=== PATIENT | female | born 1955 | race Caucasian/White ===

== ENCOUNTER 2020-09-15 16:24 | Inpatient (IN) | payer OTHER ==
[~2020-09-15] VITALS: Ht 149.9 cm; Wt 77.6 kg
[2020-09-15 16:32] VITALS: BP 152/68
[2020-09-15] MEDS ORDERED: FOSAMAX 70 MG T70 MG PO (16:40)
[2020-09-15] MEDS ORDERED: EUTHYROX100 MCG PO (16:40)
[2020-09-15] MEDS ORDERED: SINGULAIR 10 MG10 MG PO (16:41)
[2020-09-15] MEDS ORDERED: ZOCOR 20 MG TAB20 M1 PO (16:41)
[2020-09-15] MEDS ORDERED: SELENIMIN200 MCG PO (16:41)
[2020-09-15] MEDS ORDERED: VITAMIN D3125 MC1 PO (16:42)
[2020-09-15] MEDS ORDERED: CALCIUM + D3 E1 EACH PO (16:42)
[2020-09-15 17:07] LABS: BE -0.6 mmol/L (-2 to +3); PCO2 32.2 mmHg (35.0-45.0); pH 7.459 (7.340-7.450)
[2020-09-15 17:07] LABS: POTASSIUM 3.5 mmol/L (3.5-5.1)
[2020-09-15 17:10] LABS: APTT 27.3 Seconds (25.0-31.3); PROTIME 10.4 Seconds (9.20-11.50)
[2020-09-15 17:15] LABS: PO2 55.3 mmHg (75.0-100.0)
[2020-09-15 17:17] LABS: ALBUMIN 3.3 g/dL (3.4-5.0); TOTAL BILIRUBIN 0.4 mg/dL (<0.1-1.0); TOTAL PROTEIN 7.9 g/dL (6.4-8.2)
[2020-09-15 17:18] LABS: ABSOLUTE EOSINOPHILS 0.2 thou/uL (0.0-0.7); ABSOLUTE LYMPHOCYTES 1.9 thou/uL (0.8-5.3); ABSOLUTE MONOCYTES 0.4 thou/uL (0.0-1.2); ABSOLUTE NEUTROPHILS 8.5 thou/uL (1.6-8.1); BASOPHILS 0.4 %; EOSINOPHILS 1.5 %; HEMATOCRIT 42.9 % (37.0-47.0); HEMOGLOBIN 14.3 gm/dL (12.0-15.0); LYMPHOCYTES 17.5 %; MCH 28.7 pg (26.0-34.0); MCHC 33.5 g/dL (28.0-37.0); MCV 85.7 fL (80.0-100.0); MONOCYTES 3.4 %; MPV 6.2 fl. (7.2-11.1); NUCLEATED RBCS 0 /100WBC; PLATELET COUNT* 447 thou/uL (150-400); POLYS 77.2 %; RDW-CV 12.9 % (10.5-14.5)
[2020-09-15 21:00] VITALS: BP 113/61
[2020-09-15 22:00] VITALS: BP 106/55
[2020-09-15 23:07] VITALS: BP 117/60; BP 127/71
[2020-09-16] VITALS (15 sets, daily range): BP systolic 98–137; BP diastolic 41–70
[2020-09-16 02:28] LABS: ABSOLUTE LYMPHOCYTES 0.8 thou/uL (0.8-5.3); ABSOLUTE MONOCYTES 0.1 thou/uL (0.0-1.2); ABSOLUTE NEUTROPHILS 8.1 thou/uL (1.6-8.1); BASOPHILS 0.2 %; HEMATOCRIT 37.4 % (37.0-47.0); HEMOGLOBIN 12.5 gm/dL (12.0-15.0); MCH 28.5 pg (26.0-34.0); MCHC 33.5 g/dL (28.0-37.0); MCV 85.2 fL (80.0-100.0); MONOCYTES 1.3 %; MPV 6.1 fl. (7.2-11.1); NUCLEATED RBCS 0 /100WBC; PLATELET COUNT* 420 thou/uL (150-400); POLYS 89.5 %; RBC 4.39 mil/uL (4.20-5.00); RDW-CV 13.1 % (10.5-14.5); WBC 9.1 thou/uL (4.0-11.0)
[2020-09-16 02:29] LABS: CALCIUM 8.6 mg/dL (8.5-10.1); POTASSIUM 4.1 mmol/L (3.5-5.1)
--- NOTE | 2020-09-16 06:44 | NUR ---
PATIENT NOTED TO HAVE INVREASE IN O2 DEMANDS THROUGH THE NIGHT. INCREASE IN O2 FORM 6L TO 14L. DURING AM ROUNDS, O2 LEVEL AT 86-87% ON THAT 14L. PATIENT PLACED ON NRB MSAK AT THIS TIME. RT NOTIFIED. NOTIFIED.
[2020-09-16 07:35] LABS: BE -1.1 mmol/L (-2 to +3); PCO2 32.1 mmHg (35.0-45.0); pH 7.453 (7.340-7.450)
[2020-09-16 07:40] LABS: PO2 50.5 mmHg (75.0-100.0)
--- NOTE | 2020-09-16 07:45 | NUR ---
RECEIVED REPORT FROM ED RN. PT TRANSFERRED TO 233. PT A&OX4. VSS. ADMISSION HISTORY & PHYSICAL ASSESSMENT COMPLETED AND CHARTED. TRANSFUSED 1 UNIT OF CONVALESCENT PLASMA. HIVES NOTED AFTER AN HOUR OF TRANSFUSION. DOXYCYCLINE ALSO GIVEN. DR MOBLEY MADE AWARE WITH ORDER TO DC DOXYCYCLINE. BENADRYL GIVEN. NO NEW LAB ORDERS. PT WITH EPISODES OF DESATURATION 85-87%- INCREASED O2 FROM 6L NC TO NRB 15L IN AM. PROVIDER MADE AWARE WITH NEW ORDERS. CALL LIGHT WITHIN REACH.
--- NOTE | 2020-09-16 09:58 | NUR ---
CM SPOKE TO THE PT OVER THE HOSPITAL ROOM PHONE TO DISCUSS CM ASSESSMENT PT IS CURRENTLY UNDER ENHANCED PRECAUTIONS DUE TO BEING COVID POSITIVE. PT IS A&O, NORMALLY INDEPENDENT WITH ADL'S, ACITVE AND DRIVES. PT USES 0 DME. PT HAS 0 HX OF HH OR SNF. PT CURRENLY ON 15L OXYGEN AND DID NOT USES HOME OXYGEN PRIOR TO ADMIT. CM WILL REMAIN AVAILABLE TO ASSIST AND FOLLOW NEEDED.
--- NOTE | 2020-09-16 12:41 | NUR ---
REPORT CALLED TO UIREL PEARSON IN ICU. PT WILL TRANSFER TO ROOM 1 IN ICU.
--- NOTE | 2020-09-16 12:42 | EKG ---
[place] [address] ELECTROCARDIOGRAM REPORT Name: MASSIEL LOMELI Room: [place] [address] ADM IN .R.#: [id number] Admission: 09/15/20 Attend Phys: Ronnell Carvalho, Discharge: Date of : 55 Date of Service: 09/15/20 1637 Report #: [id number] THIS REPORT FOR: //name// [facility] ED Test Date: 2020-09-15 Test Time: 16:37:29 Pat Name: MASSIEL LOMELI Department: Room: [facility] Gender: F Director Of Nursing: CCD : 1955 Requested By: Han Romero Order Number: [id number] MD: Dylan Harris Measurements Intervals [place] Rate: 86 P: 40 [place]: 161 QRS: 6 QRSD: 93 T: 9 QT: 354 QTc: 424 Interpretive Statements Sinus rhythm No previous ECG available for comparison Electronically Signed On 09-16-2020 12:42:18 ELECTRONICS SPECIALIST by Dylan Harris [email or web address] <ELECTRONICALLY SIGNED> By: Dylan Harris MD, [facility] 09/16/20 1242 1637 163 Dylan Harris MD, [facility] /EPI
[2020-09-16 16:09] LABS: CALCIUM 8.1 mg/dL (8.5-10.1); CREATININE 1.3 mg/dL (0.6-1.3); POTASSIUM 3.5 mmol/L (3.5-5.1)
--- NOTE | 2020-09-16 19:45 | CON ---
[address] [address] CONSULTATION Name: MASSIEL LOMELI Room: [address] IN M.R.#: [id number] Admission: 09/15/20 Attend Phys: Ronnell Carvalho MD Discharge: Date of : 55 Report #: [id number] THIS REPORT FOR: cc: Physician not on staff Physician not on staff ~ Luis Antonio Hodges MD DATE OF SERVICE: 09/16/2020 CONSULT REQUESTED BY: Ronnell Carvalho MD INDICATION FOR CONSULTATION: Acute hypoxemic respiratory failure secondary to COVID-19. HISTORY OF PRESENT ILLNESS: This is a 65-year-old female who only has a remote history of smoking. She says that she discontinued smoking when she was in her 20s and has been a lifetime nonsmoker since then. She has had some respiratory complaints long-term which she describes as chronic bronchitis. The patient does take Singulair at home as below. It is possible that what she is describing as chronic bronchitis is bronchial asthma. Her baseline creatinine is normal. The patient is now admitted with flu-like complaints. She has been having increasing shortness of breath, also has been having fever and chills and body aches. She has also been more anxious and has had a clear nasal discharge as well as congestion in her nose. The patient has had contact with her son-in-law who has COVID-19. The patient at the time of my evaluation was on 15 L nasal cannula as well as maintaining O2 saturation in the low 90s. The patient does reported to have had a significant rash last night. The rash had developed when the patient was receiving both convalescent plasma as well as doxycycline, the causal relationship is not established; however. REVIEW OF SYSTEMS: The patient's review of systems for 12 points is negative except as mentioned above. PAST MEDICAL HISTORY: She has had a chronic respiratory illness. She thinks it is chronic bronchitis. It is possible that this is instead of bronchial asthma or other chronic respiratory disease. Cholecystectomy, back surgery, long-term use of Singulair, hypothyroidism, hyperlipidemia. CURRENT MEDICATIONS: List in [place] reviewed. HOME MEDICATIONS: List in [place] reviewed, also as discussed above. FAMILY HISTORY: Son-in-law [place] COVID-[place] [address] CONSULTATION Name: MASSIEL LOMELI Room: [address]#: [id number] Admission: 09/15/20 Attend Phys: Ronnell Carvalho MD Discharge: Date of : 55 Report #: [id number] SOCIAL HISTORY: She used to smoke when she was young in her teens and 20s discontinued when she was in her mid 20s, has not smoked since then. No known history of heavy alcohol use or illegal drug use. PHYSICAL EXAMINATION: GENERAL: The patient was very anxious at the time of my evaluation and was really worried about the diagnosis of COVID-19. VITAL SIGNS: She had a pulse of 89 and a blood pressure of 127/60, she was breathing around 30, was saturating 93% on 15 liters nasal cannula. Afebrile. HEENT: Head is normocephalic and atraumatic. NECK: Does not show raised JVP, asymmetry, mass or lymph nodes. CHEST: Symmetrical expansion on inspection and palpation. On auscultation, breath sounds are bilaterally equal, but decreased. Respiratory rate was high. Expirations were prolonged. HEART: Regular. There is no murmur. ABDOMEN: Soft and nontender. EXTREMITIES: Lower extremities show minimal edema, no calf tenderness. SKIN: Dry and intact. NEUROLOGICAL: Moves all extremities bilaterally equally and spontaneously with no focal deficit identified. LABORATORY DATA: The patient's chest x-ray is reviewed and it shows interstitial infiltrates bilaterally consistent with COVID-19. The patient's lab work is in [place] and is reviewed. ASSESSMENT AND PLAN: 1. Acute hypoxemic respiratory failure secondary to COVID-19. I considered use of BiPAP; however, I held off for now, as the patient is extremely anxious, would use a green high flow nasal cannula or heated high flow nasal cannula as indicated to maintain O2 saturations in the low 90s. I feel that it is okay to give her low dose Xanax for anxiety. If this is not sufficient, then I will have a low threshold of starting a Precedex infusion as anxiety appears to be playing a significant role in worsening her respiratory failure. 2. COVID-19. She did receive 1 unit of convalescent plasma last night. She is on dexamethasone. I agree with the current dose. Also, she is on remdesivir. We will follow LFTs. It is not clear as to whether the patient had a reaction to convalescent plasma or not. Regardless, if she fails to improve, she potentially could still be given a second unit from a different donor. 3. Pulmonary infiltrates. She received azithromycin yesterday. I ordered more azithromycin. She is on Zosyn as well as ceftriaxone. For now, I discontinued ceftriaxone; however, if she improves then I would switch her back to ceftriaxone and discontinue Zosyn. 4. Evaluation for thromboembolic phenomena. I ordered [place] [address] CONSULTATION Name: MASSIEL LOMELI Room: [address] IN [facility].#: [id number] Admission: 09/15/20 Attend Phys: Ronnell Carvalho MD Discharge: Date of : 55 Report #: [id number] is some rise in creatinine on the lab work this evening; therefore, I would favor holding off on the CTA chest for now, would increase Lovenox to intermediate dose that is b.i.d. 5. Fluid and electrolytes. I considered more Lasix; however, there is mild elevation in creatinine and therefore, I decided to hold off. 6. History of chronic respiratory illness. She describes this has been chronic bronchitis. She is on Singulair, long-term. 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 I do not have a previous chest x-ray available for comparison. It would be possible that the patient instead has underlying bronchial asthma or an interstitial lung disease. The patient is critically ill at this time. Total time spent providing critical care to this patient today is 41 minutes. <ELECTRONICALLY SIGNED> By: Luis Antonio Hodges MD 09/16/20 1945 1758 [id number] Hdoges MD /nt
[2020-09-17] VITALS (23 sets, daily range): BP systolic 95–141; BP diastolic 42–75
--- NOTE | 2020-09-17 01:27 | NUR ---
PATIENT UP TO COMMODE FOR TOILETING. O2 SAT DROPPED TO LOW 80'S, HAD TO INCREASE HHFNC TO 55L AND 85% FIO2. PATIENT RECOVERING WITH MINIMAL DISTRESS AND O2 SAT IN LOW 90'S. RT NOTIFIED.
[2020-09-17 02:44] LABS: HEMATOCRIT 35.8 % (37.0-47.0); MCH 28.9 pg (26.0-34.0); MCHC 33.6 g/dL (28.0-37.0); MCV 85.8 fL (80.0-100.0); NUCLEATED RBCS 0 /100WBC; RBC 4.17 mil/uL (4.20-5.00); RDW-CV 13.1 % (10.5-14.5); WBC 12.1 thou/uL (4.0-11.0)
[2020-09-17 02:55] LABS: PLATELET COUNT* 574 thou/uL (150-400)
[2020-09-17 03:08] LABS: ALBUMIN 2.8 g/dL (3.4-5.0); CREATININE 1.1 mg/dL (0.6-1.3); MAGNESIUM 2.1 mg/dL (1.8-2.4); POTASSIUM 3.6 mmol/L (3.5-5.1); TOTAL BILIRUBIN 0.2 mg/dL (<0.1-1.0); TOTAL PROTEIN 6.8 g/dL (6.4-8.2)
[2020-09-17 05:40] LABS: ABSOLUTE LYMPHOCYTES 0.8 thou/uL (0.8-5.3); ABSOLUTE MONOCYTES 0.6 thou/uL (0.0-1.2); ABSOLUTE NEUTROPHILS 10.6 thou/uL (1.6-8.1); PLATELET ESTIMATE INCREASED
[2020-09-17 05:41] LABS: ANISOCYTOSIS 1+; POIKILOCYTOSIS 1+
--- NOTE | 2020-09-17 14:28 | NUR ---
ICU rounds: Pt down from tele yesterday. Anxious. 50-55L HHF NC or bipap prn. Covid positive.
[2020-09-18] VITALS (23 sets, daily range): BP systolic 105–148; BP diastolic 43–66
[2020-09-18 04:39] LABS: ABSOLUTE LYMPHOCYTES 1.3 thou/uL (0.8-5.3); ABSOLUTE MONOCYTES 0.6 thou/uL (0.0-1.2); ABSOLUTE NEUTROPHILS 10.7 thou/uL (1.6-8.1); BASOPHILS 0.1 %; HEMATOCRIT 34.3 % (37.0-47.0); HEMOGLOBIN 11.4 gm/dL (12.0-15.0); LYMPHOCYTES 10.3 %; MCH 28.5 pg (26.0-34.0); MCHC 33.1 g/dL (28.0-37.0); MONOCYTES 4.9 %; MPV 6.1 fl. (7.2-11.1); NUCLEATED RBCS 0 /100WBC; PLATELET COUNT* 559 thou/uL (150-400); POLYS 84.7 %; RBC 3.99 mil/uL (4.20-5.00); RDW-CV 13.2 % (10.5-14.5); WBC 12.6 thou/uL (4.0-11.0)
[2020-09-18 04:50] LABS: PREALBUMIN 18.9 mg/dL (18.0-35.7)
[2020-09-18 04:51] LABS: ALBUMIN 2.5 g/dL (3.4-5.0); CALCIUM 7.5 mg/dL (8.5-10.1); MAGNESIUM 2.2 mg/dL (1.8-2.4); POTASSIUM 3.8 mmol/L (3.5-5.1); TOTAL BILIRUBIN 0.2 mg/dL (<0.1-1.0); TOTAL PROTEIN 5.8 g/dL (6.4-8.2)
--- NOTE | 2020-09-18 14:52 | NUR ---
DR MOBLEY NOTIFIED OF HR DECREASED TO 38-39 WHILE RESTING. HR WHEN THIS RN RCVD REPORT IN LOW 40'S. PREVIOUS RN REPORTED HR IN 40'S OVERNOC. WHILE AWAKE HR IN 40'S. NO S/SX BRADYCARDIA. DR MOBLEY ALSO NOTIFIED THIS AM WHEN HR IN LOW 40S-NO NEW ORDERS AT THAT TIME. Sachi MARCANO
--- NOTE | 2020-09-18 15:25 | NUR ---
ICU rounds: Covid positive. Anxious, xanax given. No fevers. Loose stools. Plan picc line tomorrow. HFNC during day, bipap at [facility]. Cxr better today.
--- NOTE | 2020-09-18 18:48 | NUR ---
PT SITTING UP IN BED WATCHING TV AND VISITING W/ DTR ON PHONE. FULL UPDATE GIVEN TO DTR WHILE THIS RN IN ROOM. NO INCREASED WORK OF BREATHING WHILE TALKING ON THE PHONE. O2 SAT 94% ON 15L HI YANCI. ADEQUATE COUGH W/ MINIMAL BLOOD TINGED/DINERO THICK SPUTUM. HR IN 60'S AT THIS TIME. VSS. AFEBRILE T/O SHIFT. APPETITE IMPROVING. ADEQUATE PO FLUID INTAKE. PICC TO BE PLACED IN AM. UTILIZING BED CLARKE. FREQUENT SMALL STOOLS. DENIES N/V. VOIDING ADEQUATELY. NO EDEMA NOTED. INTERMITTENTLY C/O HEADACHE-CONROLLED W/ TYLENOL. DENIES FURTHER NEEDS AT THIS TIME. Sachi MARCANO, RN
[2020-09-19] VITALS (23 sets, daily range): BP systolic 86–169; BP diastolic 46–71
[2020-09-19 04:20] LABS: ABSOLUTE LYMPHOCYTES 1.1 thou/uL (0.8-5.3); ABSOLUTE MONOCYTES 0.7 thou/uL (0.0-1.2); ABSOLUTE NEUTROPHILS 9.8 thou/uL (1.6-8.1); BASOPHILS 0.1 %; HEMATOCRIT 34.6 % (37.0-47.0); HEMOGLOBIN 11.7 gm/dL (12.0-15.0); LYMPHOCYTES 9.9 %; MCH 28.7 pg (26.0-34.0); MCHC 33.7 g/dL (28.0-37.0); MCV 85.1 fL (80.0-100.0); MONOCYTES 5.9 %; MPV 6.1 fl. (7.2-11.1); NUCLEATED RBCS 0 /100WBC; PLATELET COUNT* 591 thou/uL (150-400); POLYS 84.1 %; RBC 4.07 mil/uL (4.20-5.00); RDW-CV 12.9 % (10.5-14.5); WBC 11.6 thou/uL (4.0-11.0)
--- NOTE | 2020-09-19 04:31 | NUR ---
PT. HAS REMAINED SR/SINUS DAISY MAJORITY OF SHIFT. AWARE OF BRADYCARDIA (ASYMPTOMATIC). PT. PUT ON BIPAP, TOLERATED WELL THROUGHOUT SHIFT. WILL CONTINUE TO MONITOR.
[2020-09-19 04:35] LABS: PREALBUMIN 23.6 mg/dL (18.0-35.7)
[2020-09-19 04:36] LABS: ALBUMIN 2.5 g/dL (3.4-5.0); CALCIUM 7.8 mg/dL (8.5-10.1); CREATININE 1.1 mg/dL (0.6-1.3); POTASSIUM 3.9 mmol/L (3.5-5.1); TOTAL BILIRUBIN 0.3 mg/dL (<0.1-1.0); TOTAL PROTEIN 5.9 g/dL (6.4-8.2)
--- NOTE | 2020-09-19 07:32 | NUR ---
PATIENTS DAUGHTER CALLED AND STATED THAT HER MOTHER HAD JUST TEXTED "HELP, I CAN'T STOP POOPING" RN INFORMED DAUGHTER THAT HER NURSE HAD WALKED OUT OF THE ROOM LESS THAN 10 MINUTES PRIOR AND THAT WE WOULD GO CHECK ON PATIENT. RN OPENED DOOR AND PATIENT WAS ON THE PHONE AND HELD UP HER HAND IN A "STOP" MOTION. RN EXITED ROOM.
--- NOTE | 2020-09-19 12:02 | NUR ---
RIGHT BASILIC VESSEL ACCESSED FOR 5 AMERICAN DUAL LUMEN PICC. LINE PRE-TRIMMED TO 41CM AND ADVANCED TO THE ZERO JOAN WITH NO RESISTANCE MET. UPPER ARM CIRCUMFERENCE ABOVE INSERTION SITE=13 1/2". SHERLOCK MAGNET AND 3CG CONFIMATION OF TIP TERMINATION AT THE CAVOATRIAL JUNCTION APPRECIATED. GUIDEWIRE REMOVED, LINE FLUSHED AND INSERTION SITE DRESSED. REPORT GIVEN TO CHRIS PEARSON.
--- NOTE | 2020-09-19 14:17 | NUR ---
ICU rounds: Covid positive. Remains anxious, on xanax. Bipap while sleep, fio2 80%. Remdisivir. Convelescent plasma. Cdiff pending.
[2020-09-19 17:48] LABS: APTT 23.3 Seconds (25.0-31.3); INR 1.1; PROTIME 11.7 Seconds (9.20-11.50)
[2020-09-19 18:49] LABS: CALCIUM 7.8 mg/dL (8.5-10.1); CREATININE 1.1 mg/dL (0.6-1.3); MAGNESIUM 2.2 mg/dL (1.8-2.4); POTASSIUM 3.7 mmol/L (3.5-5.1)
--- NOTE | 2020-09-19 19:33 | NUR ---
PT RECEIVED 2ND DOSE OF PLASMA WITHOUT ADVERSE REACTIONS ELY PICC PLACED DOUBLE LUMEN FC PLACED AFTER LASIX 2500 OUTPUT PT CALLS OUT FREQUENTLY VERY ANXIOUS
[2020-09-20] VITALS (22 sets, daily range): BP systolic 108–168; BP diastolic 48–96
[2020-09-20 04:27] LABS: HEMATOCRIT 37.1 % (37.0-47.0); HEMOGLOBIN 12.6 gm/dL (12.0-15.0); MCH 28.6 pg (26.0-34.0); MCHC 33.9 g/dL (28.0-37.0); MCV 84.4 fL (80.0-100.0); NUCLEATED RBCS 0 /100WBC; PLATELET COUNT* 596 thou/uL (150-400); RBC 4.39 mil/uL (4.20-5.00); RDW-CV 13.1 % (10.5-14.5); WBC 10.9 thou/uL (4.0-11.0)
[2020-09-20 04:56] LABS: ALBUMIN 2.7 g/dL (3.4-5.0); CREATININE 1.1 mg/dL (0.6-1.3); MAGNESIUM 2.5 mg/dL (1.8-2.4); PHOSPHORUS* 3.8 mg/dL (2.5-4.9); POTASSIUM 3.5 mmol/L (3.5-5.1); TOTAL BILIRUBIN 0.4 mg/dL (<0.1-1.0); TOTAL PROTEIN 6.4 g/dL (6.4-8.2)
[2020-09-20 06:27] LABS: ABSOLUTE LYMPHOCYTES 1.3 thou/uL (0.8-5.3); ABSOLUTE MONOCYTES 0.5 thou/uL (0.0-1.2); PLATELET ESTIMATE ADEQUATE
--- NOTE | 2020-09-20 07:41 | NUR ---
RECEIVED REPORT AND ASSUMED CARE AT 1900. VSS.ICU MONITORING IN PLACE. DISCUSSED PLAN OF CARE. VERBALIZED UNDERSTANDING. DENIES COMPLAINTS OF PAIN. ASSESSMENT COMPLETED CHARTED. PT REPOSITIONS SELF IN BED. STATES SHE WOULD LIKE TO PRONE 09/20/20. ROUNDING COMPLETED AND ALL NEEDS MET
--- NOTE | 2020-09-20 19:25 | NUR ---
I ASSUMED CARE OF THE PATIENT AT 0700. SHE IS ALERT AND ORIENTED X4 AND IS UP WITH ASSIST OF ONE. BED IS IN THE LOW LOCKED POSITION AND CALL LIGHT IS IN REACH. PAIN IS DENIED. HOURLY ROUNDING IS COMPLETED AND PATIENT NEEDS ARE MET. STOOL SPECIMEN IS COLLECTED AND SENT TO LAB AND C.DIFF IS NEGATIVE. HER APPETITE IS GOOD. BLOOD SUGAR IS MONITORED AND MANAGED WITH LISPRO. XANAX IS USED FOR PRN ANXIETY. PATIENT REQUESTED DURÁN BE REMOVED BECAUSE SHE FELT PRESSURE AND HAD PAIN. SHE WAS THEN OFFERED THE COMMODE. FLUIDS WERE D/C'D. ISOLATION IS MAINTAINED. DAUGHTER WAS CONTACTED AND UPDATED ON HER STAY. WILL CONTINUE TO MONITOR.
--- NOTE | 2020-09-20 23:33 | NUR ---
PT ASSISTED TO PRONE POSITION WITH PT NURSE. SATS INCREASED TO 98-99%. PT STATED IS COMFORTABLE. WILL MONITOR CLOSLELY.
[2020-09-21] VITALS (23 sets, daily range): BP systolic 94–149; BP diastolic 46–91
--- NOTE | 2020-09-21 00:39 | NUR ---
RECEIVED REPORT AND ASSUMED CARE AT 1900. VSS. ICU MONITORING IN PLACE. PT DENIES COMPLAINTS OF PAIN. DISCUSSED PLAN OF CARE, VERBALIZED UNDERSTANDING. MEDS PER EMAR, PT UP SBA FROM RECLINER TO BED. PT SELF PRONING WITH OPTI-FLOW NC. WANTS TO HOLD OFF ON NOT USING BIPAP WHILE PRONING. BED LOCKED IN LOWEST POSITION, CALL LIGHT WITHIN REACH.BED ALARM ON.
[2020-09-21 04:25] LABS: HEMATOCRIT 37.8 % (37.0-47.0); HEMOGLOBIN 12.7 gm/dL (12.0-15.0); MCH 28.5 pg (26.0-34.0); MCHC 33.6 g/dL (28.0-37.0); MCV 84.9 fL (80.0-100.0); MPV 6.1 fl. (7.2-11.1); RBC 4.45 mil/uL (4.20-5.00); WBC 11.1 thou/uL (4.0-11.0)
[2020-09-21 04:55] LABS: ALBUMIN 2.7 g/dL (3.4-5.0); CALCIUM 8.3 mg/dL (8.5-10.1); CREATININE 1.1 mg/dL (0.6-1.3); POTASSIUM 3.6 mmol/L (3.5-5.1); TOTAL BILIRUBIN 0.5 mg/dL (<0.1-1.0); TOTAL PROTEIN 6.3 g/dL (6.4-8.2)
--- NOTE | 2020-09-21 17:51 | NUR ---
VSS this shift. Pt remained on heated HFNC now on 40 LPM @ 80%. Md Hodges requested pt be placed on BiPap at night. Pt in chair throughout this shift. Pt standing up, walking in place frequently and up to the bsc. Pt has no complaints at this time other than feeling tired.
--- NOTE | 2020-09-21 22:51 | NUR ---
RECEIVED REPORT AND ASSUMED CARE AT 2030. VSS. ICU MONITORING IN PLACE. DISCUSSED PLAN OF CARE WITH PATIENT. VERBALIZED UNDERSTANDING. MEDICATION PER EMAR. BED LOCKED IN LOWEST POSITION, CALL LIGHT WIHTIN REACH.
[2020-09-22] VITALS (13 sets, daily range): BP systolic 101–169; BP diastolic 49–95
[2020-09-22 05:18] LABS: ABSOLUTE LYMPHOCYTES 1.1 thou/uL (0.8-5.3); ABSOLUTE MONOCYTES 0.5 thou/uL (0.0-1.2); ABSOLUTE NEUTROPHILS 11.8 thou/uL (1.6-8.1); BASOPHILS 0.2 %; EOSINOPHILS 0.1 %; HEMATOCRIT 36.7 % (37.0-47.0); HEMOGLOBIN 12.2 gm/dL (12.0-15.0); LYMPHOCYTES 7.9 %; MCH 28.6 pg (26.0-34.0); MCHC 33.3 g/dL (28.0-37.0); MCV 85.7 fL (80.0-100.0); MONOCYTES 3.6 %; MPV 6.1 fl. (7.2-11.1); NUCLEATED RBCS 0 /100WBC; POLYS 88.2 %; RBC 4.28 mil/uL (4.20-5.00); WBC 13.4 thou/uL (4.0-11.0)
[2020-09-22 05:21] LABS: PLATELET COUNT* 492 thou/uL (150-400)
[2020-09-22 05:25] LABS: CALCIUM 8.4 mg/dL (8.5-10.1)
--- NOTE | 2020-09-22 10:51 | 2DMMODE ---
[place] [id number] 2 D/M-MODE ECHOCARDIOGRAM Name: MASSIEL LOMELI Room: [address] IN .R.#: [id number] Admission: 09/15/20 Attend Phys: Ronnell Carvalho, Discharge: Date of : 55 Date of Service: 09/22/20 1050 Report #: [id number] THIS REPORT FOR: cc: Physician not on staff Physician not on staff Marco Willingham MD [facility] ~ APPROVED REPORT Study performed: 09/19/2020 14:17:42 EXAM: Comprehensive 2D, Doppler, and color-flow Echocardiogram Patient Location: In-Patient Status: routine BSA: 1.73 HR: 68 bpm BP: 158/63 mmHg Rhythm: NSR Other Information Study Quality: Good Indications hypoxemia 2D Dimensions IVSd: 9.81 (7-11mm) LVOT Diam: 20.18 (18-24mm) LVDd: 49.79 mm PWd: 10.26 (7-11mm) Ascending Ao: 30.89 (22-36mm) LVDs: 24.22 (25-40mm) Aortic Root: 29.32 mm Volumes Left Atrial Volume (Systole) LA ESV Index: 24.80 mL/m2 Aortic Valve AoV Peak Sandip.: 1.43 m/s AO Peak Gr.: 8.18 mmHg LVOT Max P.58 mmHg AO Mean Gr.: 4.79 mmHg LVOT Mean P.53 mmHg LVOT Max V: 1.18 m/s AO V2 VTI: 34.72 cm LVOT Mean V: 0.73 m/s ZAKI (VTI): 2.50 cm2 LVOT V1 VTI: 27.14 [place] [id number] 2 D/M-MODE ECHOCARDIOGRAM Name: MASSIEL LOMELI Room: [address] IN M.R.#: [id number] Admission: 09/15/20 Attend Phys: Ronnell Carvalho, Discharge: Date of : 55 Date of Service: 09/22/20 1050 Report #: [id number] Mitral Valve E/A Ratio: 1.29 MV Decel. Time: 227.91 ms MV E Max Sandip.: 0.86 m/s MV PHT: 66.09 ms MVA (PHT): 3.33 cm2 TDI E/Lateral E': 8.60 E/Medial E': 8.60 Medial E' Sandip.: 0.10 m/s Lateral E' Sandip.: 0.10 m/s Pulmonary Valve PV Peak Sandip.: 1.07 m/s PV Peak Gr.: 4.60 mmHg Tricuspid Valve RAP Estimate: 5.00 mmHg TR Peak Gr.: 29.45 mmHg RVSP: 34.00 mmHg PA Pressure: 34.00 mmHg Left Ventricle The left ventricle is normal size. There is normal LV segmental wall motion. There is normal left ventricular wall thickness. Left ventricular systolic function is normal. The left ventricular ejection fraction is within the normal range. LVEF is 60-65%. The left ventricular diastolic function is normal. Right Ventricle The right ventricle is normal size. The right ventricular systolic function is normal. Atria The left atrium size is normal. The right atrium size is normal. Aortic Valve The aortic valve is normal in structure. Trace aortic regurgitation. There is no aortic valvular stenosis. Mitral Valve The mitral valve is normal in structure. There is trace mitral valve regurgitation noted. No evidence of mitral valve stenosis. Tricuspid Valve The tricuspid valve is normal in structure. Trace tricuspid regurgitation. estimated pa pressure 35 [place] [id number] 2 D/M-MODE ECHOCARDIOGRAM Name: MASSIEL LOMELI Room: [address]#: [id number] Admission: 09/15/20 Attend Phys: Ronnell Carvalho, Discharge: Date of : 55 Date of Service: 09/22/20 1050 Report #: [id number] Pulmonic Valve The pulmonary valve is normal in structure. There is trace pulmonic valvular regurgitation. Great Vessels The aortic root is normal in size. IVC is normal in size and collapses >50% with inspiration. Pericardium There is no pericardial effusion. <Conclusion> LVEF is 60-65%. <ELECTRONICALLY SIGNED> By: Marco Willingham MD, FACC 09/22/20 1050 1050 105 Marco Willingham MD, FACC /INF
--- NOTE | 2020-09-22 14:08 | NUR ---
Pt transferred to room 104 with all belongings. Pt stable prior, during, and after transfer.
--- NOTE | 2020-09-22 14:22 | NUR ---
ICU rounds: Pt to move to covid unit. On Bipap at night. 12L NC during day. Remdisivir. 2 units of convelescent plasma. Decrease anxiety.
--- NOTE | 2020-09-22 20:57 | NUR ---
Pt arrived to unit around 1430. Pt remained A&O x4 for entire shift. Pt denies any pain. Vital signs stable on 12L O2. Pt is nervous about being out of ICU but staff assured her that we would work to make her better. Pt is concerned about sleeping with the noise from the negative pressure machine. Pt's family brought her Chau[employer] to eat around 1700. Bed in low position, call light within reach.
[2020-09-23] VITALS: BP 127/64
[2020-09-23 04:00] VITALS: BP 112/64
[2020-09-23 06:24] LABS: ABSOLUTE LYMPHOCYTES 1.4 thou/uL (0.8-5.3); ABSOLUTE MONOCYTES 0.5 thou/uL (0.0-1.2); ABSOLUTE NEUTROPHILS 11.6 thou/uL (1.6-8.1); BASOPHILS 0.2 %; EOSINOPHILS 0.1 %; HEMATOCRIT 37.1 % (37.0-47.0); HEMOGLOBIN 12.4 gm/dL (12.0-15.0); LYMPHOCYTES 10.1 %; MCH 28.7 pg (26.0-34.0); MCHC 33.5 g/dL (28.0-37.0); MCV 85.7 fL (80.0-100.0); MONOCYTES 3.8 %; MPV 6.2 fl. (7.2-11.1); NUCLEATED RBCS 0 /100WBC; PLATELET COUNT* 474 thou/uL (150-400); POLYS 85.8 %; RBC 4.33 mil/uL (4.20-5.00); RDW-CV 13.2 % (10.5-14.5); WBC 13.5 thou/uL (4.0-11.0)
--- NOTE | 2020-09-23 06:24 | NUR ---
PATIENT SLEPT PART OF THE NIGHT. PATIENT REMAINS ON 12 HFNC AND WEARS BIPAP AT NIGHT AT WHILE SLEEPING. PATIENT DENIED ANY COMPLAINTS OF PAIN. WILL CONTINUE TO MONITOR.
[2020-09-23 06:35] LABS: CALCIUM 8.3 mg/dL (8.5-10.1); CREATININE 0.9 mg/dL (0.6-1.3); MAGNESIUM 2.4 mg/dL (1.8-2.4)
[2020-09-23 09:20] VITALS: BP 106/48
--- NOTE | 2020-09-23 11:54 | NUR ---
DISCUSSED AT PRIME TIME ROUNDS. BIPAP AT NIGHT AND 12L /NC DAYS. FINISHED REMDESIVIR ON 09/20. REMAINS ON IV STEROIDS.
--- NOTE | 2020-09-23 14:28 | NUR ---
Nutrition: Pt admitted with COVID. CHO controlled diet ordered. No meal intake records. Labs: BG 187-153, alb 2.7, prealb 34.2. Meds noted. Assessed for LOS. Wt was 161# at admit, recorded today as 171# - questioning accuracy. Noted Ensure Clear Fortune is ordered. Encourage good po intake. Otherwise, low risk at this time.
[2020-09-23 15:00] VITALS: BP 106/53
[2020-09-23 16:34] VITALS: BP 101/59
--- NOTE | 2020-09-23 18:47 | NUR ---
PT GOT A SHOWER TODAY HAD MEDIUM BM FAIR APPETITE SOME ANXIETY NOTED O2 DOWN TO 10L NOW SATS 92% SITTING UP IN CHAIR NO SIGNS OF RESP DISTRESS NOTED
[2020-09-23 21:09] VITALS: BP 124/62
[2020-09-24] VITALS: BP 110/49
[2020-09-24 04:00] VITALS: BP 106/68
--- NOTE | 2020-09-24 06:15 | NUR ---
PATIENT SLEPT MOST OF THE NIGHT. BEGINNING OF SHIFT SATS HAD DROPPED BACK DOWN TO 89 ON 10L PATIENT WAS BUMPED UP TO 15L HFNC. PATIENT WORE BIPAP MOST OF THE NIGHT. PATIENT WAS GIVEN MIRALAX FOR CONSTIPATION. WILL CONTINUE TO MONITOR.
[2020-09-24 08:49] VITALS: BP 105/69
[2020-09-24 13:09] VITALS: BP 110/56
[2020-09-24 15:58] VITALS: BP 116/61
--- NOTE | 2020-09-24 16:00 | NUR ---
ON 10L HFC O2 ALL DAY. BLOOD SUGARS UP DUE TO STEROIDS. HAS ANXIETY ISSUE WHICH INCREASES HER RESP FAILURE. MAY BACK DOWN ON SELVIN CAMP.
[2020-09-24 21:11] VITALS: BP 105/66
[2020-09-25] VITALS (8 sets, daily range): BP systolic 99–114; BP diastolic 48–69
[2020-09-25 07:24] LABS: HEMATOCRIT 36.8 % (37.0-47.0); HEMOGLOBIN 12.3 gm/dL (12.0-15.0); MCH 28.5 pg (26.0-34.0); MCHC 33.3 g/dL (28.0-37.0); MCV 85.6 fL (80.0-100.0); MPV 6.3 fl. (7.2-11.1); NUCLEATED RBCS 0 /100WBC; RBC 4.31 mil/uL (4.20-5.00); RDW-CV 13.5 % (10.5-14.5); WBC 14.9 thou/uL (4.0-11.0)
[2020-09-25 07:25] LABS: PLATELET COUNT* 353 thou/uL (150-400)
[2020-09-25 07:37] LABS: ALBUMIN 3.2 g/dL (3.4-5.0); CALCIUM 8.8 mg/dL (8.5-10.1); CREATININE 0.8 mg/dL (0.6-1.3); MAGNESIUM 2.2 mg/dL (1.8-2.4); POTASSIUM 3.5 mmol/L (3.5-5.1); TOTAL BILIRUBIN 0.6 mg/dL (<0.1-1.0); TOTAL PROTEIN 6.6 g/dL (6.4-8.2)
--- NOTE | 2020-09-25 07:50 | NUR ---
PATIENT SLEPT MOST OF THE NIGHT. PATIENT REMAINS ON 10L HFNC AND BIPAP DURING THE NIGHT. WILL CONTINUE TO MONITOR.
[2020-09-25 07:56] LABS: ABSOLUTE LYMPHOCYTES 2.1 thou/uL (0.8-5.3); ABSOLUTE MONOCYTES 1.2 thou/uL (0.0-1.2); ABSOLUTE NEUTROPHILS 11.6 thou/uL (1.6-8.1); PLATELET ESTIMATE ADEQUATE
--- NOTE | 2020-09-25 17:54 | NUR ---
ABLE TO BE WEANED OFF HIGH LITER FLOW OF O2 TO 2L/NC TODAY. WILL WATCH SATS TODAY AND POTENTIAL DISCHARGE HOME TOMORROW.
--- NOTE | 2020-09-25 18:54 | NUR ---
PT A&OX4 VSS. PT UP AD PRABHJOT, GAIT STEADY. PT TOLRATES ROOM AIR, DENIES SOA. SINUS ON MONITOR. IV TO RFA PATENT, SALINE LOCKED. PICC TO ELY PATENT, DRESSING C/D/I. ACCUCHECKS, INSULIN ADMINISTERED INDICATED. PT RESTS ION RECLINER WITH CALL LIGHT IN REACH.
[2020-09-26] VITALS (7 sets, daily range): BP systolic 96–126; BP diastolic 52–70
--- NOTE | 2020-09-26 04:46 | NUR ---
PT DECLINED TO WEAR BIPAP TONIGHT, STATED WILL BE GOING HOME TODAY.PLEASE SEE ALL OXYGEN CHARTING. WILL MONITOR CLOSELY.
--- NOTE | 2020-09-26 04:50 | NUR ---
PT A&O. SAT 90-94% ON RA, 88% WITH ACTIVITIES. MEDS GIVEN ORDERED. NO C/O PAIN. UP INDEPENDENTLY IN ROOM. PT SLEPT MOST OF THE NIGHT. CALL LIGHT WITHIN REACH. WILL CONTINUE TO MONITOR.
[2020-09-26] MEDS ORDERED: FISH OIL 1,001000 M2 PO (10:11)
[2020-09-26] MEDS ORDERED: PEPCID20 MG PO (10:12)
[2020-09-26] MEDS ORDERED: VITAMIN C1000 MG PO (10:12)
--- NOTE | 2020-09-26 16:51 | NUR ---
ASSESSMENT DOCUMENTED. MEDS GIVEN PER E-MAR. IV PATENT AND PICC PATENT. DISCHARGE ORDERS RECIEVED. IV AND PICC D/C'D. DISCHARGE EDUCATION GIVEN. PT STATES UNDERSTANDING. PT LEFT VIA WC.
== END 2020-09-26 16:45 | disposition home or self-care (01) | DRG 871 ==
LOC: M.ERS 16:24 → M.TBA-ER 16:56 → M.ICU 16:56 → M.2W 16:56 → M.ICU 09-16 13:56 → M.ORTHSURG 09-22 14:04
PROVIDERS: Family Medicine; Internal Medicine Critical Care Medicine; ADMIT Internal Medicine; ATTEND Internal Medicine
DX: A41.89 Other specified sepsis (principal); U07.1 COVID-19; J96.01 Acute respiratory failure with hypoxia; J12.82 Pneumonia due to coronavirus disease 2019; I74.9 Embolism and thrombosis of unspecified artery; J45.909 Unspecified asthma, uncomplicated; E03.9 Hypothyroidism, unspecified; E78.5 Hyperlipidemia, unspecified; R73.9 Hyperglycemia, unspecified; F41.9 Anxiety disorder, unspecified; T38.0X5A Adverse effect of glucocorticoids and synthetic analogues, initial encounter; Z88.8 Allergy status to other drugs, medicaments and biological substances; Z90.49 Acquired absence of other specified parts of digestive tract; Y92.89 Other specified places as the place of occurrence of the external cause; Z79.899 Other long term (current) drug therapy